=== PATIENT | male | born 1980 | race Asian ===

== ENCOUNTER 2023-10-12 06:47 | Emergency (ER) | payer OTHER, SELFPAY ==
[2023-10-12 07:00] VITALS: BP 152/93; PULSE 66; RESP 17; TEMP 36.5; O2SAT 100; BMI 23.0
[2023-10-12 07:27] LABS: MANUAL DIFF FLAG NO
[2023-10-12 07:28] LABS: Basophils Percent Auto 0.7 % (0-2); Eosinophils Absolute Auto 0.1 X10*3/uL (0.0-0.4); Eosinophils Percent Auto 1.3 % (0-4); Hematocrit 40.3 % (42.0-52.0); Hemoglobin 13.9 g/dl (14.0-18.0); Imm Gran Abs Auto 0.01 X10*3/uL (0.00-0.03); Imm Gran Pct Auto 0.2 % (0.0-0.4); Lymphocytes Absolute Auto 2.6 X10*3/uL (1.2-4.9); Lymphocytes Percent Auto 43.1 % (20-40); Mean Corpuscular HGB Conc 34.5 g/dl (31.0-36.0); Mean Corpuscular Hemoglobin 31.6 pg (27.0-33.0); Mean Corpuscular Volume 91.6 fL (80.0-98.0); Mean Platelet Volume 9.9 fL (9.4-12.4); Monocytes Absolute Auto 0.6 X10*3/uL (0.1-1.2); Monocytes Percent Auto 10.2 % (2-11); Neutrophils Absolute Auto 2.7 x10*3/uL (2.0-8.3); Neutrophils Percent Auto 44.5 % (45-73); Platelet Count 203 X10*3/uL (160-400); Red Cell Distribution Width 12.9 % (11.0-16.0); White Blood Count 6.1 X10*3/uL (4.8-10.8)
--- OUTSIDE RECORDS SUMMARY | 2023-10-12 07:30 | XMS_ITS | Continuity of Care Document ---
Author Organization [facility] Address Unknown Care Team Providers Care Fieldwork Coordinator Name Role Phone Not on Staff, PCP Primary Care Physician Unavail able Encounter [facility] Date(s): 11/19/21 - 01/21/22 [facility] Attending Physician: Rosalba Boss NP Referring Physician: Not on Staff, Referring
--- OUTSIDE RECORDS SUMMARY | 2023-10-12 07:31 | XMS_ITS | Continuity of Care Document ---
Author Organization [facility] Address [address] [place] [id number]- Care Team Providers Care Ribbon Winder Name Role Phone Not on Staff, PCP Primary Care Physician Unavail able Encounter [facility] Date(s): 07/17/20 - 08/16/20 [facility] [address] [place] [id number]
--- OUTSIDE RECORDS SUMMARY | 2023-10-12 07:31 | XMS_ITS | Continuity of Care Document ---
Author Organization [facility] Address [address] [place] [id number]- Care Team Providers Care Chemistry Technical Officer Name Role Phone Not on Staff, PCP Primary Care Physician Unavail able Encounter [facility] Date(s): 10/03/22 - 10/03/[address] [id number]- Discharge Disposition: A-D/C Home Attending Physician: Ash Morfin MD Admitting Physician: Ash Morfin MD Referring Physician: Not on Staff, Referring MD Immunizations Given and Recorded Vaccine Date Status Refusal Reason tetanus/diphtheria/pertussis, acel(Tdap) 10/03/22 Given Vital Signs Most recent to oldest [Reference Range]: 1 Oxygen Saturation [94-100 %] 98 % (10/03/22 11:10 AM) Pulse Rate [55-90 bpm] 72 bpm (10/03/22 11:10 AM) Blood Pressure [90-138/55-84 mm Hg] 130/ 93mm Hg (10/03/22 11:10 AM) Respiratory Rate [16-30 br/min] 20 br/mi n (10/03/22 11:10 AM) Temperature [96.8-100.4 DegF] 98.3 DegF (10/03/22 11:10 AM) Mode of Delivery (Oxygen) Room air (10/03/22 11:10 AM) Blood pressure sites Arm, left (10/03/22 11:10 AM) Temperature Route Oral (10/03/22 11:10 AM) Patient Care team information Care Team Personnel Name: Not on Staff, PCP Position: S Physician (General Medicine) Member Role: PCP Name: Amaya Ponce Position: S ED [facility] Name: Cristian RN, Margy Ervin Position: [facility] ED RN W/OE and Tasks Member Role: Patient Care Provider Name: Kate Smith MD Position: [facility] Resident Member Role: ED Resident Address: Address: [address] [place] [address]- Name: Ash Morfin MD Position: [facility] ED Medicine MD Member Role: Admitting Physician Address: Address: [address] [place] [address]- Care Team Related Persons Name: RONEN RICKETTS Address: home [address] [place] [id number]
--- NOTE | 2023-10-12 07:34 | ED_ITS ---
HPI - Psych General Chief Complaint: Psychiatric Symptoms Stated Complaint: unable to sleep Time Seen by Provider: 10/12/23 07:34 Source: patient Mode of arrival: ambulatory Limitations: no limitations History of Present Illness HPI Narrative: Patient is a physician at [employer], had intrussive thoughts of hurting himself with no plan. This all stems from his wanting to leave him and take his daughter with her. States no prior depression, never tried to hurt himself. complaint: suicidal ideation and feels depressed Onset (ago): day(s) Duration: constant History of same: No Related Data Previous Rx's ?Medication ?Instructions ?Recorded trazodone 50 mg tablet 25 mg (1/2 x 50 mg) PO BEDTIME PRN 10/12/23 insomnia #15 tabs Allergies Allergy/AdvReac Type Severity Reaction Status Date / Time No Known Allergies Allergy Verified 10/12/23 07:06 Review of Systems 2 Review of Systems: Yes all other systems are reviewed and are negative Neurologic: Denies Sensory deficit (Neuro) [facility] Social History Social History Alcohol intake: current Alcohol intake frequency: a few times a month Alcohol type: wine Smoked in Last 30 Days: Yes Use of substances other than those prescribed or required for medical reasons: No Advance Directives: No Advance Directives Information Provided: No Do you have a plan to hurt others: No Plan Physical Exam 2 Vital Signs: Vital Signs: Last Vital Signs Temp 97.7 F 10/12/23 07:00 Pulse 66 10/12/23 07:00 Resp 16 10/12/23 08:00 BP 152/93 H 10/12/23 07:00 Pulse Ox 100 10/12/23 07:00 O2 Del Method Room Air 10/12/23 07:00 BMI result Body Mass Index 23.0 Const: General: healthy appearing Nutritional Appearance: average body habitus Orientation/consciousness: oriented to person and patient oriented x3 Limitations: no limitations HEENT: Head: Yes normal to inspection Ears: external ears normal General nose exam: Normal external nose present Mouth: Normal oral and palatal mucosa present and oropharynx normal Throat: Yes posterior oropharynx normal Eyes: General: appearance normal, both eyes and all related structures Neck: Other: supple Neck: Yes normal visual inspection Chest: Chest palpation & inspection: normal inspection of the chest Resp: Auscultation: clear to auscultation bilaterally Cardio: Jugular venous distension: no JVD Rate: regular rate Rhythm: r egular rhythm Heart sounds: S1 normal heart sound present and S2 normal heart sound present GI: Inspection: Yes normal to inspection Palpation (GI): Soft to palpation, nontender and No hepatosplenomegaly present Auscultation: normal bowel sounds : General: Yes no CVA tenderness Back/Spine/Pelvis: Back: no CVA tenderness Skin: General skin exam: no rashes or lesions noted Neuro: General: oriented to person and patient oriented x3 Cranial nerves: Yes CN's II-XII intact bilaterally Motor exam (neuro): 5/5 motor strength present throughout Sensory Exam: No Sensory deficit (Neuro) Extrem: General: Yes normal to inspection Psych: Appearance: grossly normal Course Reevaluation(s) Reevaluation #1: At this time patient is medically cleared. He is placed into physician observation at this time to see if his depression improves while crisis evaluates him, Currently resting comfortably Time: 09:24 Reevaluation #2: end of physician observation: patient cleared by crisis, NAD, normal physical will dc home Time: 12:30 Medical Decision Making Differential Diagnosis Differential Diagnoses: The differential diagnosis associated with the presentation includes (depression, suicidal thoughts, stress, anxiety) Admission/Observation Consideration of admission/observation: Escalation of care including admission/observation considered (upon arrival patient considered for admission) Consult Healthcare Provider Management of the patient was discussed with: Behavioral Health Provider Lab Data 10/12/23 07:23 10/12/23 07:23 Labs: Lab Results 10/12/23 10/12/23 Range/Units 07:23 08:02 WBC 6.1 (4.8-10.8) X10*3/uL RBC 4.40 L (4.60-5.80) X10*6/uL Hgb 13.9 L (14.0-18.0) g/dl Hct 40.3 L (42.0-52.0) % MCV 91.6 (80.0-98.0) fL MCH 31.6 (27.0-33.0) pg MCHC 34.5 (31.0-36.0) g/dl RDW 12.9 (11.0-16.0) % Plt Count 203 (160-400) X10*3/uL MPV 9.9 (9.4-12.4) fL Immature Gran % (Auto) 0.2 (0.0-0.4) % Neut % (Auto) 44.5 L (45-73) % Lymph % (Auto) 43.1 H (20-40) % [place] % (Auto) 10.2 (2-11) % Eos % (Auto) 1.3 (0-4) % Baso % (Auto) 0.7 (0-2) % Lymph # (Auto) 2.6 (1.2-4.9) X10*3/uL [place] # (Auto) 0.6 (0.1-1.2) X10*3/uL Eos # (Auto) 0.1 (0.0-0.4) X10*3/uL Baso # (Auto) 0.0 (0.0-0.2) X10*3/uL Abs Immat Gran (auto) 0.01 (0.00-0.03) X10*3/uL Absolute Neuts (auto) 2.7 (2.0-8.3) x10*3/uL Absolute Nucleated RBC 0.000 (0.0-0.012) X10*3/uL Nucleated RBC % (auto) 0.0 (0.0-0.2) /100WBC Sodium 140 (135-145) mmol/L Potassium 3.6 (3.3-5.1) mmol/L Chloride 106 (96-108) mmol/L Carbon Dioxide 24 (22-29) mmol/L Anion Gap 14 (12-20) BUN 9 (9-16) mg/dL Creatinine 0.98 (0.5-1.4) mg/dL Estim Creat Clear Calc 90.8 Estimated GFR > 60 Random Glucose 99 (60-115) mg/dL Calcium 9.3 (8.4-10.2) mg/dL Total Bilirubin 1.0 (0.0-1.0) mg/dL AST 25 (5-37) U/L ALT 23 (0-40) U/L Alkaline Phosphatase 52 (39-117) U/L Total Protein 8.3 H (6.5-8.0) g/dL Albumin 4.4 (3.5-5.0) g/dL Urine Color Yellow Urine Appearance Clear Urine pH 7.0 (5.0-9.0) Ur Specific [place] <= 1.005 (1.005-1.025) Urine Protein Negative (Neg-Trace) mg/dL Urine Glucose (UA) Negative (Negative) mg/dL Urine Ketones Negative (Negative) mg/dL Urine Blood Negative (Negative) Urine Nitrite Negative (Negative) Ur Leukocyte Esterase Negative (Negative) Urine Opiates Screen Not Detected (Not Detect) Ur Buprenorphine Scrn Not Detected (Not Detect) ng/mL Ur Oxycodone Screen Not Detected (Not Detect) ng/mL Urine Methadone Screen Not Detected (Not Detect) ng/mL Urine Fentanyl Screen Not Detected (Not Detect) Ur Barbiturates Screen Not Detected (Not Detect) Ur Phencyclidine Scrn Not Detected (Not Detect) Ur Amphetamines Screen Not Detected (Not Detect) U Benzodiazepines Scrn Not Detected (Not Detect) Urine Cocaine Screen Not Detected (Not Detect) U Marijuana (THC) Screen Not Detected (Not Detect) Ethyl Alcohol < 10 mg/dL Social Determinants Patient?s care significantly limited by Social Determinants of Health including: Problems related to primary support group Discharge Plan Discharge Clinical Impression: Depression Patient Disposition: Home, Self-Care Instructions: Depression (ED) Prescriptions: New trazodone 50 mg tablet 25 mg PO BEDTIME PRN (Reason: insomnia) Qty: 15 0RF Referrals: Physician,None [Primary Care Provider] - Interventions: [place]-Suicide Risk Severity Scale Last Done: 10/12/23 08:00 Print Language: Arabic
[2023-10-12 07:46] LABS: Alanine Aminotransferase 23 U/L (0-40); Albumin Level 4.4 g/dL (3.5-5.0); Alkaline Phosphatase 52 U/L (39-117); Anion Gap 14 (12-20); Aspartate Amino Transferase 25 U/L (5-37); Blood Urea Nitrogen 9 mg/dL (9-16); Calcium 9.3 mg/dL (8.4-10.2); Carbon Dioxide 24 mmol/L (22-29); Chloride 106 mmol/L (96-108); Creatinine Clr Calc Pharmacy 90.8; Estimated Glomerular Filt Rate > 60; Glucose Random 99 mg/dL (60-115); Potassium 3.6 mmol/L (3.3-5.1); Sodium 140 mmol/L (135-145); Total Protein 8.3 g/dL (6.5-8.0)
[2023-10-12 08:00] VITALS: RESP 16
--- NOTE | 2023-10-12 08:03 | PC.NURSE ---
Assumed care of patient at approximately 0750, patient comes in from home today reporting suicidal ideation. He reports that last night him and his got into an argument that resulted in them sleeping in separate area which caused him increased stress. He reports that he did not sleep well last night and subsequently started having suicidal thoughts without a defined plan. He reports that he has no intention of acting on these thoughts at this time. Patient is sitting upright in bed in 4 at this time, offering no immediate concerns to this RN. Calm and cooperative, alert and oriented x4, skin pwd, respirations even and unlabored, no apparent distress noted. Pending MD evaluation then CARE team
[2023-10-12 08:18] LABS: Appearance Urine Clear; Color Urine Yellow; Glucose Urine UA Negative (Negative); Leukocyte Esterase Urine Negative (Negative); Nitrite Urine Negative (Negative); Specific Gravity - Urine <= 1.005 (1.005-1.025); Urine Blood Negative (Negative); Urine Ketones Negative (Negative); Urine Protein Negative (Neg-Trace)
[2023-10-12 08:19] LABS: Amphetamine Screen Urine Not Detected (Not Detect); Barbiturates, Urine Not Detected (Not Detect); Benzodiazepines Screen Urine Not Detected (Not Detect); Buprenorphine Scr Not Detected (Not Detect); Cannabinoid Screen Urine Not Detected (Not Detect); Cocaine Screen Urine Not Detected (Not Detect); Fentanyl, urine Not Detected (Not Detect); Methadone Screen, Urine Not Detected (Not Detect); Opiate Screen Urine Not Detected (Not Detect); Oxycodone Screen Urine Not Detected (Not Detect); Phencyclidine Screen Urine Not Detected (Not Detect)
[2023-10-12 08:19] LABS: Ethanol < 10 mg/dL
--- NOTE | 2023-10-12 12:14 | P.CNPS_ITS ---
History of Present Illness Date of Service: 10/12/23 Chief Complaint: unable to sleep Reason for Consult: suicidal ideation Requesting physician: Jose Eugene Discussed with referring provider: Yes Sources of Information: patient interviewed, chart reviewed and crisis/core team assessment reviewed HPI Narrative: Mr. Fraga is a 43 year-old male who self presented to [facility] ED due to increase intrusive thought of life not worth living in context of difficulties with (talks about separation) and fear that may take their daughter. He denied any plan or intent to harm himself. He reported difficulty sleeping with troubling thoughts but adamantly denies any plan or intent to harm himself. Pt was assessed by care team. Pt seen in ED. He presents as calm and cooperative. He reports divorce in his culture is not usual and he reports that he believes his and him can work things out. We did not discuss specific details as to source of tension between the two of them, but he reports he plans to work less and take more time off. No hx of suicide attempts. He reports he would like referrals to couple therapist and psychiatrist. This creative services writer offered to schedule an appointment soon, however, he reports he will contact these providers directly. No s/s of psychosis or delusions. Diagnostics Vital Signs (24Hr): Vital Signs - 24 hr 10/12/23 07:00 10/12/23 08:00 Temperature 97.7 F Pulse Rate 66 Respiratory Rate 17 16 Blood Pressure 152/93 H Pulse Oximetry 100 Oxygen Delivery Method Room Air BMI result Body Mass Index 23.0 Labs 10/12/23 07:23 10/12/23 07:23 Labs: Laboratory Results - last 48 hr 10/12/23 10/12/23 07:23 08:02 WBC 6.1 RBC 4.40 L Hgb 13.9 L Hct 40.3 L MCV 91.6 MCH 31.6 MCHC 34.5 RDW 12.9 Plt Count 203 MPV 9.9 Immature Gran % (Auto) 0.2 Neut % (Auto) 44.5 L Lymph % (Auto) 43.1 H [place] % (Auto) 10.2 Eos % (Auto) 1.3 Baso % (Auto) 0.7 Lymph # (Auto) 2.6 [place] # (Auto) 0.6 Eos # (Auto) 0.1 Baso # (Auto) 0.0 Abs Immat Gran (auto) 0.01 Absolute Neuts (auto) 2.7 Absolute Nucleated RBC 0.000 Nucleated RBC % (auto) 0.0 Sodium 140 Potassium 3.6 Chloride 106 Carbon Dioxide 24 Anion Gap 14 BUN 9 Creatinine 0.98 Estim Creat Clear Calc 90.8 Estimated GFR > 60 Random Glucose 99 Calcium 9.3 Total Bilirubin 1.0 AST 25 ALT 23 Alkaline Phosphatase 52 Total Protein 8.3 H Albumin 4.4 Urine Color Yellow Urine Appearance Clear Urine pH 7.0 Ur Specific [place] <= 1.005 Urine Protein Negative Urine Glucose (UA) Negative Urine Ketones Negative Urine Blood Negative Urine Nitrite Negative Ur Leukocyte Esterase Negative Urine Opiates Screen Not Detected Ur Buprenorphine Scrn Not Detected Ur Oxycodone Screen Not Detected Urine Methadone Screen Not Detected Urine Fentanyl Screen Not Detected Ur Barbiturates Screen Not Detected Ur Phencyclidine Scrn Not Detected Ur Amphetamines Screen Not Detected U Benzodiazepines Scrn Not Detected Urine Cocaine Screen Not Detected U Marijuana (THC) Screen Not Detected Ethyl Alcohol < 10 Mental Status Exam Mental Status Exam Narrative: Appearance: wearing hospital gown, good hygiene, in NAD Behavior: cooperative and calm Psychomotor: no agitation or retardation noted Speech: clear, normal rate/rhythm/volume, spontaneous TP: linear TC: help seeking, open to referrals Mood: calmer, better Affect: congruent, somewhat flat SI: denies HI: none VH/AH: none Delusions: none Insight/judgment: intact x 2 memory/cog: alert, oriented x 3. grossly intact to conversational testing. Medications Allergies Allergies Allergy/AdvReac Type Severity Reaction Status Date / Time No Known Allergies Allergy Verified 10/12/23 07:06 Assessment & Plan Assessment & Plan (1) Adjustment disorder with depressed mood: Status: Acute Code(s): F43.21 - Adjustment disorder with depressed mood Plan Mr. Fraga is a 43 year-old male who self presented to [facility] ED reporting thoughts of life not worth living during the night in context of going through marital problems with his and there was talk about separation. Pt reports he would not want a divorce. He reports he believes his will also be in agreement to work on their marriage. Information about couple's therapy center in [place] and additional therapist and psychiatrist given to him. Mr. Fraga advised to give us a call should he is not able to connect with providers soon enough or situation/mood worsening. We also discuss trazodone for sleep. I had recommended to consider maybe remeron as it may have more antidepressant effect than trazodone and also will help with sleep, however, Mr. Fraga reports he would like to try trazodone. PLAN 1. No need for inpatient psychiatric admission as there is no imminent safety concerns in terms of SI or HI. 2. sent rx trazodone 50mg can take one or half tablet for sleep. #15, no refills. Total time managing care of this patient today ____ minutes.
[2023-10-12 12:40] VITALS: BP 152/93; PULSE 66; RESP 17; TEMP 36.5; O2SAT 100
== END 2023-10-12 15:34 | disposition home or self-care (01) ==
PROVIDERS: Emergency Provider Emergency Medicine
DX: F32.A Depression, unspecified (principal); R45.851 Suicidal ideations; G47.00 Insomnia, unspecified; F17.200 Nicotine dependence, unspecified, uncomplicated; Z72.89 Other problems related to lifestyle; Z63.0 Problems in relationship with spouse or partner
CPT/HCPCS: 36415; 80053; 80307; 81003; 85025; 99285; S9485

== ENCOUNTER → 2023-10-12 07:28 | Outpatient (BNV) | payer OTHER, SELFPAY | PROVIDERS: Emergency Provider Emergency Medicine; Visit Provider Social Worker | DX: F43.21 Adjustment disorder with depressed mood (principal) | CPT/HCPCS: 99285 ==